=== PATIENT | female | born 1940 | race Native Hawaiian/Other Pacific Islander ===

== ENCOUNTER 2018-10-28 13:03 | Outpatient (CLI) | payer MEDICARE, BC | END 2018-10-28 13:04 | disposition home or self-care (01) | LOC: C.RADH 13:04 ==

== ENCOUNTER 2018-11-08 15:53 | Outpatient (CLI) | payer MEDICARE, BC | END 2018-11-08 15:54 | disposition home or self-care (01) | LOC: C.MRIC 15:53 ==

== ENCOUNTER 2018-11-10 16:32 | Outpatient (CLI) | payer MEDICARE, BC | END 2018-11-10 16:33 | disposition home or self-care (01) | LOC: C.MRIC 16:32 ==